=== PATIENT | female | born 1960 | race Caucasian/White ===

== ENCOUNTER 2018-08-15 21:29 | Emergency (ER) | payer BC ==
[2018-08-15 21:55] VITALS: BP 155/92
[2018-08-15] MEDS ORDERED: METOCLOPRAMIDE 5 MG/ML 2 ML VIAL IVP STA (21:59)
[2018-08-15] MEDS ORDERED: diphenhydrAMINE 50 MG/ML 1 ML VIAL IVP STA (21:59)
[2018-08-15] MEDS ORDERED: KETOROLAC 30 MG/ML 1 ML VIAL IVP STA (21:59)
[2018-08-15] MEDS ORDERED: SODIUM CHLORIDE 0.9% 500 ML 500 ML IV STA (21:59)
--- NOTE | 2018-08-15 22:04 | ED ---
Headache HPI - General Chief Complaint: Headache Stated Complaint: Headache Time Seen by Provider: 08/15/18 21:32 Mode of arrival: EMS Limitations: no limitations - History of Present Illness Initial Comments: This patient is a 58-year-old woman with history of previous headaches who presents to be evaluated for severe headache tonight. The patient states that she usually gets one severe headache a month. They sometimes last for a number of days up to a week. She indicates the pain is by parietal. She describes it as an exploding sensation. It is severe. She denies having any fever or chills, neck stiffness or pain, neurologic symptoms, change in vision. She did try Excedrin Migraine which often helps at home without much relief. The one concerning factor to her is that she states this headache is not typical of the ones that she usually gets. MD Complaint: headache Onset/Timin -: hour(s) Onset Description: gradual Location: right, left, temporal Severity: severe Quality: throbbing Consistency: constant Improves With: nothing Worsens With: none Context: occurred at rest Associated Symptoms: photophobia Treatments Prior to Arrival: other (Excedrin) - Related Data Previous Rx's Medication Instructions Recorded Metoclopramide [Reglan] 10 mg PO TID PRN #10 tab 08/15/18 Allergies Allergy/AdvReac Type Severity Reaction Status Date / Time codeine Allergy Unknown Verified 08/15/18 21:57 Sulfa (Sulfonamide Allergy Rash/Hives Verified 08/15/18 21:57 Antibiotics) Review of Systems ROS Statement: Those systems with pertinent positive or pertinent negative responses have been documented in the HPI. ROS Other: All systems not noted in ROS Statement are negative. Constitutional: Denies: fever, chills, weakness Eyes: Denies: vision change ENT: Denies: congestion Respiratory: Denies: cough Cardiovascular: Denies: chest pain Neurological: Reports: headache. Denies: weakness, numbness, paresthesias, confusion Past Medical History Additional Past Medical History / Comment(s): Hx of Migraines History of Any Multi-Drug Resistant Organisms: None Reported Past Surgical History: Section Smoking Status: Never smoker Past Alcohol Use History: None Reported Past Drug Use History: None Reported General Exam Limitations: no limitations General appearance: alert, in no apparent distress Head exam: Present: atraumatic, normocephalic Eye exam: Present: normal appearance, PERRL, EOMI, other (Unable to perform funduscopic exam secondary to photophobia). Absent: scleral icterus, conjunctival injection, nystagmus ENT exam: Present: normal oropharynx Neck exam: Present: normal inspection, full ROM. Absent: tenderness, meningismus Neurological exam: Present: alert, oriented X3, CN II-XII intact. Absent: motor sensory deficit Skin exam: Present: warm, dry, intact, normal color. Absent: rash Course Vital Signs 08/15/18 08/16/18 21:31 00:08 Temperature 98.2 F 97.9 F Pulse Rate 69 62 Respiratory 18 16 Rate Blood Pressure 155/92 O2 Sat by Pulse 96 98 Oximetry Medical Decision Making - Medical Decision Making Patient's 58-year-old woman with history of headaches presenting with a severe headache that was not entirely typical of her usual headaches. She did receive headache cocktail with good relief of her symptoms. CT is negative. Discussed rationale for lumbar puncture and Patient declines at this point. Disposition Clinical Impression: Headache Disposition: HOME SELF-CARE Condition: Good Instructions (If sedation given, give patient instructions): Acute Headache (ED) Prescriptions: Metoclopramide [Reglan] 10 mg PO TID PRN #10 tab PRN Reason: Headache Is patient prescribed a controlled substance at d/c from ED?: No Referrals: Nonstaff,Physician [REFERRING] - 1-2 days Marissa Weaver MD [STAFF PHYSICIAN] - 1-2 days
--- NOTE | 2018-08-15 23:17 | CT ---
EXAM: CT Head Without Intravenous Contrast CLINICAL HISTORY: Pain TECHNIQUE: Axial computed tomography images of the head/brain without intravenous contrast. CTDI is 0.085, 0.085, 51.7 mGy and DLP is 1357.4 mGy-cm. This CT exam was performed using one or more of the following dose reduction techniques: automated exposure control, adjustment of the mA and/or kV according to patient size, and/or use of iterative reconstruction technique. COMPARISON: No relevant prior studies available. FINDINGS: Brain: Unremarkable. No acute hemorrhage, large hypodensity, or significant mass effect. Ventricles: Unremarkable. No ventriculomegaly. Bones/joints: Unremarkable. No acute fracture. Soft tissues: Unremarkable. Sinuses: Unremarkable. Mastoid air cells: Unremarkable. IMPRESSION: No acute intracranial abnormality.
[2018-08-15] MEDS ORDERED: methylPREDNISolone SOD SUCCI 125 MG/2 ML VIAL IV STA (23:37)
[2018-08-16 00:09] VITALS: PULSE 62; RESP 16; TEMP 97.9
== END 2018-08-16 00:09 | disposition home or self-care (01) ==
LOC: EC 21:29
DX: R51 Headache (principal); H53.149 Visual discomfort, unspecified; Z88.2 Allergy status to sulfonamides; Z88.5 Allergy status to narcotic agent
CPT/HCPCS: 70450; 99284; 96374; 96375 ×3; J1200; J2765; J2930; J1885